=== PATIENT | female | born 1980 | race African-American/Black ===

== ENCOUNTER 2021-02-07 16:42 | Observation (INO) ==
[2021-02-07] MEDS ORDERED: MAGNESIUM SULF RIDER 2 GM/50 ML PREMIX IV PRN (19:34)
[2021-02-07] MEDS ORDERED: MORPHINE 2 MG/1 ML SYRINGE IV PRN (19:34)
[2021-02-07] MEDS ORDERED: MAGNESIUM SULF RIDER 4 GM/100 ML PREMIX IV PRN (19:34)
[2021-02-07] MEDS ORDERED: POTASSIUM CHLORIDE 20 MEQ TABLET PO PRN ×2 (19:34)
[2021-02-07] MEDS ORDERED: ONDANSETRON 4 MG/2 ML VIAL IV PRN (19:34)
[2021-02-07] MEDS ORDERED: ATORVASTATIN 20 MG TABLET PO SCH (21:00)
[2021-02-07] MEDS ORDERED: carvediloL 6.25 MG TABLET PO SCH (21:00)
[2021-02-07] MEDS: carvediloL 25 MG TABLET PO SCH (21:01)
[2021-02-07] MEDS: ENOXAPARIN 120 MG/0.8 ML SYRINGE SUBCUT SCH (21:02)
[2021-02-07] MEDS: cefTRIAXone 1,000 MG in SODIUM CHLORIDE 0.9% 100 ML IV SCH (22:52)
[2021-02-08 01:55] LABS: Risk Ratio 5.18; VLDL Cholesterol 32.8 MG/DL
[2021-02-08] MEDS: NITROGLYCERIN 2% OINT 1 INCH/GM PACK TOP SCH ×2 (02:04→06:21)
[2021-02-08] MEDS ORDERED: methylPREDNISolone SOD SUC 125 MG/2 ML VIAL IV ONE (08:29)
[2021-02-08] MEDS ORDERED: KETOROLAC 30 MG/1 ML VIAL IV ONE (08:30)
[2021-02-08] MEDS ORDERED: LOSARTAN 50 MG TABLET PO SCH (09:00)
[2021-02-08] MEDS ORDERED: ASPIRIN EC 325 MG TABLET PO SCH (09:00)
[2021-02-08] MEDS: PANTOPRAZOLE 40 MG TABLET PO SCH (09:53)
[2021-02-08] MEDS: carvediloL 25 MG TABLET PO SCH ×2 (09:53→20:53)
[2021-02-08] MEDS: amLODIPine 10 MG TABLET PO SCH (09:53)
[2021-02-08] MEDS: ENOXAPARIN 120 MG/0.8 ML SYRINGE SUBCUT SCH (09:54)
[2021-02-08] MEDS: ROSUVASTATIN 20 MG TABLET PO SCH (10:04)
[2021-02-08] MEDS: cefTRIAXone 1,000 MG in SODIUM CHLORIDE 0.9% 100 ML IV SCH (20:52)
[2021-02-08] MEDS: LOSARTAN 50 MG TABLET PO SCH (20:53)
[2021-02-09 06:04] LABS: Basophils % 0.1 % (0.0-0.8); Hematocrit 35.6 VOL% (35.7-47.0); Hemoglobin 11.8 GM/DL (12.0-16.0); Immature Granulocytes % 0.6 %; Immature Granulocytes Absolute 0.07 #; Lymphocytes # 1.7 10*3/uL (1.4-4.0); Mean Corpuscular HGB Conc 33.1 GM/DL (32-36); Mean Corpuscular Volume 89.2 FL (87-102); Mean Platelet Volume 9.9 FL (9.6-12.0); Monocytes % 4.3 % (1.7-12.7); Platelet Count 363 T/CUMM (130-400); Red Blood Count 3.99 MC/CUMM (3.8-5.5); White Blood Count 11.2 T/CUMM (4-12)
[2021-02-09 06:35] LABS: Calcium 9.8 MG/DL (8.5-10.1); Osmolality,Calculated 274.1 MOS/KG (273-304)
[2021-02-09 07:05] LABS: High Sensitive Troponin I* 63.9 ng/L (0-54)
[2021-02-09] MEDS: carvediloL 25 MG TABLET PO SCH (08:48)
[2021-02-09] MEDS: PANTOPRAZOLE 40 MG TABLET PO SCH (08:48)
[2021-02-09] MEDS: ROSUVASTATIN 20 MG TABLET PO SCH (08:48)
[2021-02-09] MEDS: LOSARTAN 50 MG TABLET PO SCH (08:48)
[2021-02-09] MEDS: amLODIPine 10 MG TABLET PO SCH (08:48)
[2021-02-09] MEDS ORDERED: ASPIRIN EC 81 MG TABLET PO SCH (09:00)
[2021-02-09 10:00] VITALS: BP 138/72
== END 2021-02-09 10:47 | disposition home or self-care (01) ==
LOC: N.TELES → SUATTDRO 18:28
PROVIDERS: ADMIT Internal Medicine; ATTEND Internal Medicine